=== PATIENT | male | born 1960 | race Caucasian/White ===

== ENCOUNTER 2022-02-11 10:46 | Emergency (ER) | payer OTHER, SELFPAY ==
[2022-02-11] VITALS (8 sets, daily range): BP systolic 109–138; BP diastolic 68–87; PULSE 57–72; RESP 16–25; TEMP 36.8; O2SAT 96–98
--- NOTE | 2022-02-11 11:03 | DI.RAD.S_ITS ---
PROCEDURE: XR CHEST 1V INDICATIONS: Chest pain TECHNIQUE: One view of the chest was acquired. COMPARISON: None. FINDINGS: Surgical changes and devices: Sternotomy and CABG. Lungs and pleura: Lungs are clear. No pleural effusions or pneumothorax. Mediastinum: Mediastinal contours appear normal. Heart size is normal. Bones and chest wall: No suspicious bony lesions. Overlying soft tissues appear unremarkable. IMPRESSION: No acute cardiopulmonary disease. Dictated by: Bereket Alcaraz M.D. on 02/11/2022 at 11:56 Approved by: Bereket Alcaraz M.D. on 02/11/2022 at 11:57
[2022-02-11 11:11] LABS: Add Manual Diff / Slide Review NO; Basophils Absolute Auto 100 /uL (0-100); Basophils Percent Auto 0.9 % (0-2); Eosinophils Absolute Auto 400 /uL (0-450); Eosinophils Percent Auto 4.8 % (2-4); Hematocrit 42.4 % (41-53); Hemoglobin 14.6 g/dL (13.5-17.5); Lymphocytes Absolute Auto 1900 /uL (1100-4500); Lymphocytes Percent Auto 26.4 % (25-40); Mean Corpuscular HGB Conc 34.5 % (30-36); Mean Corpuscular Hemoglobin 31.4 PG (26-34); Mean Corpuscular Volume 90.8 fL (80-100); Monocytes Absolute Auto 700 /uL (0-900); Monocytes Percent Auto 9.2 % (3-14); Neutrophils Absolute Auto 4300 /uL (1500-7000); Neutrophils Percent Auto 58.7 % (50-75); Platelet Count 209 X10^3/uL (150-400); Red Blood Cell Count 4.67 X10^6/uL (4.5-5.9); Red Cell Distribution Width 13.2 % (11.6-14.8); White Blood Cell Count 7.3 X10^3/uL (4.5-11.0)
[2022-02-11 11:22] LABS: Alanine Aminotransferase 31 IU/L (<50); Albumin 4.3 g/dL (3.5-5.0); Albumin Globulin Ratio 1.7 (1.0-2.8); Alkaline Phosphatase 60 U/L (38-126); Aspartate Aminotransferase 30 IU/L (17-59); BUN Creatinine Ratio 33.8 (6-22); Bilirubin Total 0.5 mg/dL (0.2-1.3); Blood Urea Nitrogen 23 mg/dL (9-20); Calcium 8.8 mg/dL (8.4-10.2); Carbon Dioxide 25 mmol/L (22-32); Chloride 107 mmol/L (98-107); Creatine Kinase 61 U/L (55-170); Estimated Glomerular Filt Rate > 60 mL/min (>60); Globulin 2.5 g/dL (1.7-4.1); Glucose 91 mg/dL (80-110); HEMOLYSIS < 15 (0-50); Lipase 234 U/L (23-300); Potassium 3.7 mmol/L (3.4-5.1); Sodium 141 mmol/L (137-145); Total Protein 6.8 g/dL (6.3-8.2)
[2022-02-11 11:34] LABS: Troponin I < 0.012 ng/mL (0.01-0.034)
--- NOTE | 2022-02-11 11:46 | ED.CHESTPAIN ---
HPI - Chest Pain General Chief Complaint: Chest Pain Stated Complaint: Chest feels twingey - hx of heart attack Time Seen by Provider: 02/11/22 11:02 Source: patient Mode of arrival: Ambulatory Limitations: no limitations History of Present Illness HPI narrative: 61-year-old male the known history of coronary artery disease. States he has had a heart attack in the past. Has also had a 4 vessel coronary artery bypass graft. Has not was greater than 10 years ago. He is had a great recovery afterwards. He states that for the past couple weeks he has had intermittent episodes of ?twinges? in the left side of his chest. He does exercise every day. Has not had to change any of his exercises because of this. No shortness of breath. Not worse with palpation or touch. The reason he is here today is that he told his about it who thought that he should come in to be evaluated. He is having the discomfort at the time of my exam. Related Data Allergies Allergy/AdvReac Type Severity Reaction Status Date / Time No Known Drug Allergies Allergy Verified 02/11/22 11:05 Review of Systems Review of Systems ROS Unobtainable: All systems reviewed & are unremarkable except as noted in HPI and below Patient History Medical History Coronary artery disease Surgical History Hx of CABG Social History Smoking Status: Former smoker Smoking Status: Former smoker tobacco type: cigarettes alcohol intake frequency: holidays/special occasions only Substance Use Type: does not use Exam Initial Vital Signs Initial Vital Signs: Vital Signs Temperature 98.2 F 02/11/22 11:05 Pulse Rate 72 02/11/22 11:05 Respiratory Rate 18 02/11/22 11:05 Blood Pressure 138/69 02/11/22 11:05 Pulse Oximetry 98 02/11/22 11:05 Oxygen Delivery Method 02/11/22 11:05 HENMT Head: normal to inspection and normocephalic Chest Chest: No crepitus and No tenderness Resp Effort & Inspection: normal respiratory effort Auscultation: clear to auscultation bilaterally Cardio Rate: regular rate Rhythm: regular rhythm GI Inspection: normal to inspection Palpation: soft, No firm and No tender Skin General: no rashes or lesions noted Neuro General: patient alert, patient awake, patient oriented x3 and moves all extremities Extrem General: No edema Psych Appearance: grossly normal and well kempt Scores HEART Score Heart Score history: Slightly Suspicious Heart Score EKG: Normal Heart Score Age: 45-64 years old Heart Score risk factors: > 3 risk factors or hx of atherosclerotic disease Heart Score troponin: < or = to normal limit Heart Score Total: 3 Course Orders Ordered: ED Orders 02/11/22 11:00 Complete Blood Count AUTO DIFF Stat Comprehensive Metabolic Panel Stat Lipase Stat Troponin & CK Cardiac Panel Stat EKG-12 Lead Stat 02/11/22 11:03 XR chest 1V Stat 02/11/22 12:54 Troponin I Stat Vital Signs Vital signs: Vital Signs - 8 hr 02/11/22 11:05 02/11/22 11:30 02/11/22 11:31 Temperature 98.2 F Pulse Rate 72 63 Respiratory Rate 18 19 Blood Pressure 138/69 114/70 Pulse Oximetry 98 96 Oxygen Delivery Method Room Air Room Air 02/11/22 12:00 02/11/22 12:00 Temperature Pulse Rate 62 Respiratory Rate 25 H Blood Pressure 119/70 Pulse Oximetry 96 Oxygen Delivery Method Room Air MDM - Chest Pain Lab Data Result diagrams: 02/11/22 11:00 02/11/22 11:00 Labs: Lab Results 02/11/22 02/11/22 02/11/22 Range/Units 11:00 11:00 11:00 WBC 7.3 (4.5-11.0) X10^3/uL RBC 4.67 (4.5-5.9) X10^6/uL Hgb 14.6 (13.5-17.5) g/dL Hct 42.4 (41-53) % MCV 90.8 (80-100) fL MCH 31.4 (26-34) PG MCHC 34.5 (30-36) % RDW 13.2 (11.6-14.8) % Plt Count 209 (150-400) X10^3/uL Neut % (Auto) 58.7 (50-75) % Lymph % (Auto) 26.4 (25-40) % [place] % (Auto) 9.2 (3-14) % Eos % (Auto) 4.8 H (2-4) % Baso % (Auto) 0.9 (0-2) % Neut # (Auto) 4300 (9711-5739) /uL Lymph # (Auto) 1900 (9112-3988) /uL [place] # (Auto) 700 (0-900) /uL Eos # (Auto) 400 (0-450) /uL Baso # (Auto) 100 (0-100) /uL Sodium 141 (137-145) mmol/L Potassium 3.7 (3.4-5.1) mmol/L Chloride 107 (98-107) mmol/L Carbon Dioxide 25 (22-32) mmol/L BUN 23 H (9-20) mg/dL Creatinine 0.68 (0.66-1.25) mg/dL Estimated GFR > 60 (>60) mL/min BUN/Creatinine Ratio 33.8 H (6-22) Glucose 91 (80-110) mg/dL Calcium 8.8 (8.4-10.2) mg/dL Total Bilirubin 0.5 (0.2-1.3) mg/dL AST 30 (17-59) IU/L ALT 31 (<50) IU/L Alkaline Phosphatase 60 (38-126) U/L Total Creatine Kinase 61 (55-170) U/L CK-MB (CK-2) TNP CK-MB (CK-2) Rel Index TNP Troponin I < 0.012 (0.01-0.034) ng/mL Total Protein 6.8 (6.3-8.2) g/dL Albumin 4.3 (3.5-5.0) g/dL Globulin 2.5 (1.7-4.1) g/dL Albumin/Globulin Ratio 1.7 (1.0-2.8) Lipase 234 (23-300) U/L 02/11/22 Range/Units 12:54 WBC (4.5-11.0) X10^3/uL RBC (4.5-5.9) X10^6/uL Hgb (13.5-17.5) g/dL Hct (41-53) % MCV (80-100) fL MCH (26-34) PG MCHC (30-36) % RDW (11.6-14.8) % Plt Count (150-400) X10^3/uL Neut % (Auto) (50-75) % Lymph % (Auto) (25-40) % [place] % (Auto) (3-14) % Eos % (Auto) (2-4) % Baso % (Auto) (0-2) % Neut # (Auto) (4833-8328) /uL Lymph # (Auto) (2636-7652) /uL [place] # (Auto) (0-900) /uL Eos # (Auto) (0-450) /uL Baso # (Auto) (0-100) /uL Sodium (137-145) mmol/L Potassium (3.4-5.1) mmol/L Chloride (98-107) mmol/L Carbon Dioxide (22-32) mmol/L BUN (9-20) mg/dL Creatinine (0.66-1.25) mg/dL Estimated GFR (>60) mL/min BUN/Creatinine Ratio (6-22) Glucose (80-110) mg/dL Calcium (8.4-10.2) mg/dL Total Bilirubin (0.2-1.3) mg/dL AST (17-59) IU/L ALT (<50) IU/L Alkaline Phosphatase (38-126) U/L Total Creatine Kinase (55-170) U/L CK-MB (CK-2) CK-MB (CK-2) Rel Index Troponin I < 0.012 (0.01-0.034) ng/mL Total Protein (6.3-8.2) g/dL Albumin (3.5-5.0) g/dL Globulin (1.7-4.1) g/dL Albumin/Globulin Ratio (1.0-2.8) Lipase (23-300) U/L Imaging Data Chest x-ray: Radiologist's Impression: [address] [address] XRay Report Signed Patient: Ulysses Arambula MR#: [id number] : 1960 Acct:[id number] Age/Sex: 61 / M Date of Service: 02/11/22 Loc: ED Accession Number: [id number] ?? Procedure: XR chest 1V Ordering Provider: Kevin Ames D.O. PROCEDURE:? XR CHEST 1V ? INDICATIONS:? Chest pain ? TECHNIQUE:? One view of the chest was acquired.? ? COMPARISON:? None. ? FINDINGS:? ? Surgical changes and devices:? Sternotomy and CABG.? ? Lungs and pleura:? Lungs are clear.? No pleural effusions or pneumothorax.? ? Mediastinum:? Mediastinal contours appear normal.? Heart size is normal.? ? Bones and chest wall:? No suspicious bony lesions.? Overlying soft tissues appear unremarkable.? ? IMPRESSION:? No acute cardiopulmonary disease. ? ? Dictated by: Bereket Alcaraz M.D. on 02/11/2022 at 11:56 ? ? Approved by: Bereket Alcaraz M.D. on 02/11/2022 at 11:57? ECG Data Attestation: I personally reviewed and interpreted this ECG as follows: Interpretation: Sinus rhythm Ventricular rate is 64 Left axis deviation Right bundle branch block Normal QRS Normal QTC No ST wave changes MDM Narrative Medical decision making narrative: Patient has known coronary artery disease but has had symptoms for the past several weeks. They have also been sharp discomfort in the left side of his chest. Troponins are negative. EKG unremarkable. Has a low risk heart score. Will discharge patient home. He has a follow-up with a telecom network manager within the next month. Was given return precautions and follow-up instructions. He expressed understanding and agreement. Discharge Plan Departure Patient Disposition: Home Clinical Impression: Atypical chest pain Instructions: DI for Atypical Chest Pain Activity Restrictions/Additional Instructions: Recommend that you continue to take all of your medications as directed and keep all of your scheduled medical appointments. Return to the emergency department for any new or worsening symptoms.
[2022-02-11 13:26] LABS: Troponin I < 0.012 ng/mL (0.01-0.034)
== END 2022-02-11 14:13 | disposition home or self-care (01) ==
PROVIDERS: Emergency Provider Emergency Medicine
DX: R07.89 Other chest pain (principal); I25.2 Old myocardial infarction; I25.10 Atherosclerotic heart disease of native coronary artery without angina pectoris
CPT/HCPCS: 36415; 71045; 80053; 82550; 83690; 84484; 85025; 93005; 99283; 99284

== ENCOUNTER → 2022-07-28 09:12 | Outpatient (CLI) | payer OTHER, SELFPAY ==
--- NOTE | 2022-07-28 | DI.ECHO.S_ITS ---
[place] [facility]---------+ [facility] +---------+ : : [address] : [place] : : : : [id number] : : : : Phone: [phone]+ Echocardiogram Report + + :Name: NILA VILLAGOMEZ Study Date: 07/28/2022 Height: 74 in : :[facility] ReadingLocation: Weight: 212 lb : : Gender: Male BSA: 2.2 m2 : :: 1960 Age: 61 yrs BP: 135/75 mmHg: :Reason For Study: CHEST PAIN HR: 55 : :Ordering Physician: POWER, : :DEEPALI Performed By: MALCOM ANGUIANO : :Referring: DEEPALI STALEY : + + Interpretation Summary 1) Normal left ventricular size and thickness wiht low normal sysotlic function (EF 50-55%). 2) Basal to mid inferior wall and the entire inferolateral wall are severely hypokinetic. 3) Mildly enlarged right ventricle with low normal systolic function. 4) There is mild aortic regurgitation. 5) The ascending aorta is mild-moderately enlarged at 4.2cm. 6) No prior Echo available for comparison. Procedure: A two-dimensional transthoracic echocardiogram with color flow and Doppler was performed. The study quality was technically adequate. There is no prior echocardiogram noted for this patient. The patient was in normal sinus rhythm during the exam. The patient had occasional PVCs during the exam. Left Ventricle: The left ventricle is normal in size and wall thickness. The ejection fraction is estimated to be 50-55%. Left ventricular systolic function is low normal. Basal to mid inferior wall and the entire inferolateral wall are severely hypokinetic. Diastolic parameters suggest a relaxation abnormality of the left ventricle, consistent with probable normal filling pressures. Right Ventricle: The right ventricle is mildly dilated. Right ventricular systolic function is at the lower limits of normal. Atria: The left atrial size is normal. Right atrial size is normal. There is no Doppler evidence for an interatrial shunt. Mitral Valve: The mitral valve leaflets appear mildly thickened, but open well. There is mild mitral regurgitation. Aortic Valve: The aortic valve is trileaflet. The aortic valve is slightly calcified. There is no aortic valve stenosis. There is mild aortic regurgitation. Tricuspid Valve: The tricuspid valve is normal in structure and function. There is mild tricuspid regurgitation. The right ventricular systolic pressure is estimated to be at least 21 mmHg based on an estimated right atrial pressure of 3 mm Hg. Pulmonic Valve: The pulmonic valve is normal in structure and function. There is mild pulmonic regurgitation. Great Vessels: The aortic root is borderline dilated. The ascending aorta is mild-moderately enlarged. The IVC is of normal diameter and collapses greater than 50% with a sniff. This suggests a low right atrial pressure of 3 mm Hg. Pericardium/ Pleura There is no pericardial effusion. There is no pleural effusion. MMode/2D Measurements & Calculations LVIDd: 5.3 cm LVOT diam: 2.3 cm LVIDs: 4.5 cm Ao root diam: 3.9 cm FS: 15.1 % asc Aorta Diam: 4.2 cm IVSd: 0.90 cm LVPWd: 1.0 cm LV chung. diameter/BSA (cm/m^2): 2.4 LV sys. diameter/BSA (cm/m^2): 2.0 LA A2 area: 21.2 cm2 RA long axis: 4.8 cm LA A4 area: 20.2 cm2 LA length (vol): 5.7 cm LA vol: 63.8 ml LA vol index: 28.6 ml/m2 LVLs ap4: 7.3 cm LVLd ap2: 8.5 cm LVLs ap2: 6.8 cm TAPSE_phl: 1.9 cm Doppler Measurements & Calculations Ao V2 max: 158.0 cm/sec LVOT Max Hank: 141.0 cm/sec Ao V2 mean: 114.0 cm/sec LV V1 max P.0 mmHg Ao max P.0 mmHg LV V1 VTI: 34.1 cm Ao mean P.0 mmHg BENSON(I,D): 3.8 cm2 Ao V2 VTI: 37.4 cm BENSON(V,D): 3.7 cm2 sev ratio: 0.91 BENSON indexed to BSA (cm^2/m^2): 1.7 AI P1/2t: 764.4 msec AI dec slope: 123.0 cm/sec2 MV E max hank: 71.6 cm/sec TR max hank: 209.0 cm/sec MV A max hank: 85.7 cm/sec TR max P.5 mmHg MV E/A: 0.84 PA V2 max: 100.0 cm/sec Med Peak E' Hank: 6.1 cm/sec PA V2 mean: 74.3 cm/sec E/E' med: 11.8 PA mean P.0 mmHg Lat Peak E' Hank: 12.7 cm/sec PA pr(Accel): 21.9 mmHg E/E' lat: 5.6 E/e' average: 8.7 MV dec time: 0.33 sec SV(LVOT): 141.7 ml AV P1/2t-pr_phl: 765.0 msec AV VR_phl: 0.89 BENSON(VTI)/BSA_phl: 1.7 MV P1/2t-pr_phl: 98.0 msec Reading Physician:10:28 AM
--- NOTE | 2022-07-28 19:17 | DI.NM.S_ITS ---
DATE OF SERVICE: 07/28/2022 PROCEDURE: Exercise treadmill stress and rest myocardial perfusion imaging with gating to assess ejection fraction and regional wall motion. ORDERING PROVIDER: Dr. Ruben Staley. INDICATIONS: The patient is a 61-year-old male with a history of myocardial infarction and bypass grafting with fleeting atypical chest discomfort. EXERCISE TREADMILL TESTING: The patient was able to exercise for 11 minutes 3 seconds on a standard Ramone protocol, suggesting very good exercise capacity with an JESUS of -23%, achieving a maximum heart rate of 152 BPM (95% of his predicted maximum). He had a normal blood pressure response. He had no chest pain or other anginal symptoms. His resting ECG shows inferolateral Q-waves consistent with previous infarction but normal ST segments. There were no significant ST-segment shifts. There were rare isolated PVCs but no other arrhythmias. At 9 minutes 46 seconds of exercise at a heart rate of 138 BPM, 25.0 millicuries of technetium-99m Myoview was injected and he was imaged 20 minutes later using a gated SPECT acquisition protocol. Earlier in the day while at rest, he had been injected with 12.1 millicuries of technetium-99m Myoview and was imaged 20 minutes later, again using a gated SPECT acquisition protocol. FINDINGS: 1. Raw data. There is good myocardial tracer uptake. Lung/heart ratio is normal at 0.26 with a normal TID ratio of 0.80. 2. Quantitated gated SPECT: Post-stress ejection fraction is estimated at 52%, although visually appears to be closer to 45% to 50%. There is akinesis at the base of the inferior wall that extends into the proximal and mid inferolateral wall and a slight dyssynchronous contraction pattern. The resting ejection fraction is estimated at 55% and appears identical to that of the post stress ejection fraction. Resting end-diastolic volume is moderately increased at 194 mL. 3. Myocardial perfusion imaging: Post-stress supine images show absent perfusion at the base of the inferior and lateral wall, extending into the mid and distal inferolateral wall, but sparing the very distal portion and the apex. This defect persists on the prone images. The resting images show an identical perfusion pattern without any obvious areas of improvement. IMPRESSION: 1. Abnormal myocardial perfusion study. 2. Moderate sized, fixed perfusion defect in the base of the inferior and lateral machado, extending into the mid and distal inferolateral wall, consistent with previous transmural myocardial infarction but without significant myocardial ischemia. 3. Mildly reduced left ventricular systolic function with a proximal inferior and proximal to mid inferolateral wall motion abnormality on both stress and rest images. Left ventricular volumes are moderately increased and right ventricular volumes also appear to be mildly increased. 4. Very good exercise capacity without angina or ECG evidence of ischemia. There were rare PVCs but no other ectopy. Ulysses Arambula - // doc#: [id number]/job#: [id number] dd: 07/28/2022 16:26:00 dt: 07/28/2022 18:31:00 DICTATING MD/COPIES TO: Calvin Rodriguez MD; Dr. Ruben Staley COPIES MNE: ASHLEIGH; ; Dr. Ruben Staley
== END ==
PROVIDERS: PCP Naturopath; Referring Provider Internal Medicine Cardiovascular Disease; Visit Provider Internal Medicine Cardiovascular Disease
DX: R07.9 Chest pain, unspecified (principal); I51.7 Cardiomegaly; I35.1 Nonrheumatic aortic (valve) insufficiency
CPT/HCPCS: 78452; 93017; 93306; A9502

== ENCOUNTER → 2023-08-15 12:26 | Outpatient (CLI) | payer OTHER, SELFPAY ==
--- NOTE | 2023-08-15 12:28 | DI.ECHO.S_ITS ---
[place] [facility]---------+ [facility] +---------+ : : [address] : : : : [phone] : : : : Phone: [phone]+ Echocardiogram Report + + :Name: NILA VILLAGOMEZ Study Date: 08/15/2023 Height: 74 in : :[facility] ReadingLocation: Weight: 214 lb : : Gender: Male BSA: 2.2 m2 : :: 1960 Age: 62 yrs BP: 114/76 mmHg: :Reason For Study: ASCENDING AORTA ENLARGEMENT : :Ordering Physician: POWER, : :DEEPALI Performed By: Cande Scruggs : :Referring: DEEPALI STALEY : + + Interpretation Summary 1) Normal left ventricular size and thickness wiht low normal sysotlic function (EF 50-55%). 2) Basal to mid inferior wall and the entire inferolateral wall are severely hypokinetic. 3) Normal right ventricular size with low normal systolic function. 4) There is mild aortic regurgitation. 5) The ascending aorta is mild-moderately enlarged at 4.3cm. 6) Compared to the Echo done 07/07/2022, ascending aorta enlargement has increased from 4.2cm to 4.3cm on this study. Procedure: A two-dimensional transthoracic echocardiogram with color flow and Doppler was performed. The study quality was technically adequate. Comparison is made with the echocardiogram of 07/28/2022. The patient was in sinus rhythm with heart rates between 59-75 bpm during the exam. Left Ventricle: The left ventricle is mildly dilated. The ejection fraction is estimated to be 50-55%. Right Ventricle: The right ventricle is normal size. Right ventricular systolic function is at the lower limits of normal. Atria: The left atrial size is normal. Right atrial size is normal. There is no Doppler evidence for an interatrial shunt. Mitral Valve: The mitral valve leaflets appear mildly thickened, but open well. There is mild mitral regurgitation. Aortic Valve: The aortic valve is trileaflet. The aortic valve opens well. There is no aortic valve stenosis. There is mild aortic regurgitation. Tricuspid Valve: The tricuspid valve is normal in structure and function. There is trace tricuspid regurgitation. Pulmonic Valve: The pulmonic valve leaflets are thin and pliable; valve motion is normal. There is mild pulmonic regurgitation. Great Vessels: The aortic root is normal size. The ascending aorta is mild- moderately enlarged. The IVC is of normal diameter and collapses greater than 50% with a sniff. This suggests a low right atrial pressure of 3 mm Hg. Pericardium/ Pleura There is no pericardial effusion. There is no pleural effusion. MMode/2D Measurements & Calculations LVIDd: 6.1 cm LVOT diam: 2.0 cm LVIDs: 4.6 cm Ao root diam: 3.9 cm FS: 23.4 % asc Aorta Diam: 4.4 cm EPSS: 0.98 cm Ao Arch Diam (Prox Trans): 3.4 cm IVSd: 1.0 cm LVPWd: 0.95 cm LV chung. diameter/BSA (cm/m^2): 2.7 LV sys. diameter/BSA (cm/m^2): 2.1 LA A2 area: 22.5 cm2 RA long axis: 5.4 cm LA A4 area: 19.5 cm2 RA area: 18.2 cm2 LA length (vol): 5.7 cm RA vol: 52.6 ml LA vol: 65.1 ml RA : 23.5 ml/m2 LA vol index: 29.1 ml/m2 IVC diam: 1.9 cm RVD1 (basal): 3.7 cm TAPSE: 1.7 cm Doppler Measurements & Calculations Ao V2 max: 136.4 cm/sec LVOT Max Hank: 123.8 cm/sec Ao V2 mean: 92.5 cm/sec LV V1 max P.1 mmHg Ao max P.4 mmHg LV V1 VTI: 26.6 cm Ao mean P.0 mmHg BENSON(I,D): 2.8 cm2 Ao V2 VTI: 29.2 cm BENSON(V,D): 2.8 cm2 sev ratio: 0.91 BENSON indexed to BSA (cm^2/m^2): 1.3 MV E max hank: 53.3 cm/sec TR max hank: 211.7 cm/sec MV A max hank: 92.7 cm/sec TR max P.9 mmHg MV E/A: 0.57 PA V2 max: 96.1 cm/sec Med Peak E' Hank: 6.7 cm/sec PA V2 mean: 72.9 cm/sec E/E' med: 7.9 PA mean P.3 mmHg Lat Peak E' Hank: 12.9 cm/sec PA pr(Accel): 48.2 mmHg E/E' lat: 4.1 E/e' average: 6.0 MV dec time: 0.24 sec SV(LVOT): 82.6 ml Reading Physician:03:09 PM
== END ==
PROVIDERS: PCP Naturopath; Referring Provider Internal Medicine Cardiovascular Disease; Visit Provider Internal Medicine Cardiovascular Disease
DX: I77.89 Other specified disorders of arteries and arterioles (principal); I08.0 Rheumatic disorders of both mitral and aortic valves
CPT/HCPCS: 93306

== ENCOUNTER → 2024-11-01 12:19 | Outpatient (CLI) | payer OTHER, SELFPAY ==
--- NOTE | 2024-11-01 12:21 | DI.ECHO.S_ITS ---
[place] +---------+ Hospital : : [address] : : [place] : : [phone] : : Phone: [phone] Echocardiogram Report + + :Name: NILA VILLAGOMEZ Study Date: 11/01/2024 Height: 74 in : :[facility] ReadingLocation: Weight: 211 lb : : Gender: Male BSA: 2.2 m2 : :: 1960 Age: 64 yrs BP: 110/70 mmHg: :Reason For Study: ASCENDING AORTA ENLARGEMENT : :Ordering Physician: POWER, : :DEEPALI Performed By: Sanya Meyer : :Referring: DEEPALI STALEY : + + Interpretation Summary 1) Normal left ventricular size and thickness with low normal systolic function (EF 50-55%). 2) Basal to mid inferior wall and the entire inferolateral wall are severely hypokinetic. 3) Boprderline enlarged right ventricle with low normal systolic function. 4) There is mild aortic regurgitation. 5) The ascending aorta is moderately enlarged at 4.6cm. 6) Compared to the Echo done 08/15/2023, ascending aorta enlargement has increased from 4.3cm to 4.6cm on this study. Procedure: A two-dimensional transthoracic echocardiogram with color flow and Doppler was performed. The study quality was technically good. There is no prior echocardiogram noted for this patient. The patient was in normal sinus rhythm during the exam. Left Ventricle: The left ventricle is normal in size. There is normal left ventricular wall thickness. There is no ventricular septal defect visualized. The ejection fraction is estimated to be 50-55%. Basal to mid inferior wall and the entire inferolateral wall are severely hypokinetic. Diastolic parameters suggest a relaxation abnormality of the left ventricle, consistent with probable normal filling pressures. Right Ventricle: The right ventricle is borderline dilated. Right ventricular systolic function is at the lower limits of normal. Atria: The left atrium is moderately dilated. Right atrial size is normal. There is no Doppler evidence for an interatrial shunt. Mitral Valve: The mitral valve leaflets appear mildly thickened, but open well. There is trace mitral regurgitation. Aortic Valve: The aortic valve is trileaflet. The aortic valve is mildly calcified. The aortic valve opens well. There is mild aortic regurgitation. Tricuspid Valve: The tricuspid valve leaflets are thin and pliable. There is trace tricuspid regurgitation. Pulmonic Valve: The pulmonic valve leaflets are thin and pliable; valve motion is normal. There is mild pulmonic regurgitation. Great Vessels: The aortic root is mildly dilated. The ascending aorta is moderately enlarged. The pulmonary artery is normal size. The IVC is of normal diameter and collapses greater than 50% with a sniff. This suggests a low right atrial pressure of 3 mm Hg. Pericardium/ Pleura There is no pericardial effusion. There is no pleural effusion. MMode/2D Measurements & Calculations LVIDd: 5.1 cm LVOT diam: 2.5 cm LVIDs: 3.8 cm Ao root diam: 3.9 cm FS: 26.2 % asc Aorta Diam: 4.6 cm EPSS: 1.2 cm Ao Arch Diam (Prox Trans): 2.5 cm IVSd: 1.1 cm LVPWd: 1.0 cm LV chung. diameter/BSA (cm/m^2): 2.3 LV sys. diameter/BSA (cm/m^2): 1.7 LA A2 area: 26.2 cm2 RA long axis: 5.5 cm LA A4 area: 26.1 cm2 RA area: 16.3 cm2 LA length (vol): 6.7 cm RA vol: 40.7 ml LA vol: 87.0 ml RA : 18.3 ml/m2 LA vol index: 39.1 ml/m2 IVC diam: 2.0 cm RVD1 (basal): 4.0 cm RVD2 (mid): 3.9 cm TAPSE: 2.0 cm Doppler Measurements & Calculations Ao V2 max: 173.9 cm/sec LVOT Max Hank: 129.2 cm/sec Ao V2 mean: 124.6 cm/sec LV V1 max P.7 mmHg Ao max P.1 mmHg LV V1 VTI: 29.7 cm Ao mean P.8 mmHg BENSON(I,D): 3.9 cm2 Ao V2 VTI: 37.9 cm BENSON(V,D): 3.7 cm2 sev ratio: 0.78 BENSON indexed to BSA (cm^2/m^2): 1.7 MV E max hank: 60.9 cm/sec TR max hank: 235.2 cm/sec MV A max hank: 90.0 cm/sec TR max P.1 mmHg MV E/A: 0.68 PA V2 max: 118.4 cm/sec Med Peak E' Hank: 6.8 cm/sec PA V2 mean: 79.3 cm/sec E/E' med: 9.0 PA mean P.9 mmHg Lat Peak E' Hank: 11.9 cm/sec PA pr(Accel): 17.3 mmHg E/E' lat: 5.1 E/e' average: 7.0 MV dec time: 0.35 sec SV(LVOT): 147.3 ml Reading Physician:05:23 PM
== END ==
PROVIDERS: PCP Naturopath; Referring Provider Internal Medicine Cardiovascular Disease; Visit Provider Internal Medicine Cardiovascular Disease
DX: I35.1 Nonrheumatic aortic (valve) insufficiency (principal); I37.1 Nonrheumatic pulmonary valve insufficiency; I77.810 Thoracic aortic ectasia; I77.89 Other specified disorders of arteries and arterioles
CPT/HCPCS: 93306